=== PATIENT | male | born 1965 | race Caucasian/White ===

== ENCOUNTER 2017-11-20 06:59 | Emergency (ER) | payer MEDICARE, MEDICAID ==
[~2017-11-20] VITALS: Ht 172.7 cm; Wt 67.0 kg
[~2017-11-20 06:59] MED LIST: MEDICAL MARIJUANA
[2017-11-20 08:04] LABS: CLARITY,URINE CLOUDY (Clear); COLOR,URINE YELLOW (Yellow); GLUCOSE, URINE NEGATIVE (Neg); KETONES,URINE NEGATIVE (Neg); LEUKOCYTE ESTERASE ,URINE SMALL (Neg); NITRITES, URINE POSITIVE (Neg); OCCULT BLOOD,URINE LARGE (Neg); PH,URINE 6.5 (4.8-8.0); PROTEIN,URINE >=300 mg/dl (Neg)
[2017-11-20 08:06] LABS: BASOPHILS % (AUTO) 0.2 % (0-1); EOSINOPHILS % (AUTO) 0.1 % (0-6); HEMATOCRIT 43.5 % (42.0-52.0); HEMOGLOBIN 14.8 g/dl (14.0-17.9); LYMPHOCYTES # (AUTO) 1.2 X10'3 (1.1-4.8); MEAN CORPUSCULAR HEMOGLOBIN 31.5 PG (27.0-31.0); MEAN CORPUSCULAR VOLUME 92.7 FL (78-98); MEAN PLATELET VOLUME 9.3 FL (7.4-10.4); MONOCYTES # (AUTO) 1.1 X10'3 (0-0.9); MONOCYTES % (AUTO) 6.4 % (2-12); NEUTROPHILS # (AUTO) 14.4 X10'3 (1.8-7.7); NEUTROPHILS % (AUTO) 86.3 % (42-75); PLATELET COUNT 270 X10'3 (140-440); RED CELL DISTRIBUTION WIDTH 13.1 % (11.5-14.5); WHITE BLOOD COUNT 16.7 X10'3 (4.5-11.0)
[2017-11-20 08:11] LABS: INR 0.9 INR; PROTHROMBIN TIME 9.4 SECONDS (9.0-12.0)
[2017-11-20 08:16] LABS: ALANINE AMINOTRANSFERASE 79 U/L (12-78); ALBUMIN 3.9 G/DL (3.4-5.0); ALBUMIN/GLOBULIN RATIO 1.1 (1.1-1.5); ALKALINE PHOSPHATASE 78 IU/L (46-116); ANION GAP 5 (8-16); ASPARTATE AMINO TRANSFERASE 38 U/L (10-37); BILIRUBIN,TOTAL 0.4 MG/DL (0.1-1.0); BLOOD UREA NITROGEN 15 MG/DL (7-18); BUN/CREATININE RATIO 14.7 (5.4-32.0); CALCIUM 8.7 MG/DL (8.5-10.1); CHLORIDE 103 MMOL/L (99-107); CREATININE 1.02 MG/DL (0.60-1.10); GLUCOSE 129 MG/DL (70-104); LIPASE 135 U/L (73-393); POTASSIUM 3.7 MMOL/L (3.5-5.1); SODIUM 139 MMOL/L (135-145); TOTAL CARBON DIOXIDE 30.7 MMOL/L (24-32); TOTAL PROTEIN 7.3 G/DL (6.4-8.2); eGFR 76 ML/MIN
[2017-11-20 08:30] LABS: UA COLLECTION TYPE CLN CATCH MIDSTREAM
[2017-11-20 08:35] LABS: SQUAMOUS EPITHELIAL CELL,UR FEW /LPF (FEW)
[2017-11-20 08:36] LABS: BACTERIA,URINE 4+ /HPF (Neg)
[2017-11-20 08:37] LABS: RBC,URINE TNTC /HPF (0-2); WBC,URINE TNTC /HPF (0-4)
[2017-11-20] MEDS ORDERED: CIPR-230 PO (09:42)
[2017-11-20 10:34] VITALS: BP 125/89
== END 2017-11-20 10:36 | disposition home or self-care (01) ==
LOC: ER 06:59
DX: N39.0 Urinary tract infection, site not specified (principal); G89.29 Other chronic pain; F12.90 Cannabis use, unspecified, uncomplicated; Z87.442 Personal history of urinary calculi; Z86.19 Personal history of other infectious and parasitic diseases; Z90.49 Acquired absence of other specified parts of digestive tract; Z88.5 Allergy status to narcotic agent; Z88.1 Allergy status to other antibiotic agents; Z79.899 Other long term (current) drug therapy
CPT/HCPCS: 36415; 74176; 80053; 81001; 83690; 85025; 85610; 87077; 87088; 87186; 99285

== ENCOUNTER 2019-04-14 09:02 | Emergency (ER) | payer MEDICARE, MEDICAID ==
[~2019-04-14] VITALS: Ht 165.1 cm; Wt 66.4 kg
[2019-04-14] MEDS ORDERED: ketorolac trometh inj. 60 MG/2 ML VIAL IM ONE (12:00)
[2019-04-14] MEDS ORDERED: cyclobenzaprine 10mg tablet PO ONE (12:00)
[2019-04-14] MEDS ORDERED: ACET-3067 PO (12:02)
[2019-04-14] MEDS ORDERED: CYCL-1 PO (12:02)
[2019-04-14 12:27] VITALS: BP 144/90
== END 2019-04-14 12:28 | disposition home or self-care (01) ==
LOC: ER 09:02
DX: M54.5 Low back pain (principal); G89.29 Other chronic pain; F12.90 Cannabis use, unspecified, uncomplicated; Z86.19 Personal history of other infectious and parasitic diseases; Z87.442 Personal history of urinary calculi; Z90.49 Acquired absence of other specified parts of digestive tract; Z87.891 Personal history of nicotine dependence; Z88.5 Allergy status to narcotic agent; Z88.1 Allergy status to other antibiotic agents; Z79.899 Other long term (current) drug therapy
CPT/HCPCS: 96372; 99283; J1885

== ENCOUNTER 2019-04-17 10:10 | Emergency (ER) | payer MEDICARE, MEDICAID ==
[~2019-04-17] VITALS: Ht 165.1 cm; Wt 66.4 kg
[~2019-04-17 10:10] MED LIST changes: +ACET-3067 PO; +CYCL-1 PO
[2019-04-17] MEDS ORDERED: ketorolac tromethamine 15mg/ml inj. IM ONE (11:05)
[2019-04-17 11:31] LABS: BASOPHILS % (AUTO) 0.2 % (0-1); EOSINOPHILS % (AUTO) 0.3 % (0-6); HEMATOCRIT 42.1 % (42.0-52.0); HEMOGLOBIN 14.8 g/dl (14.0-17.9); LYMPHOCYTES # (AUTO) 1.6 X10'3 (1.1-4.8); LYMPHOCYTES % (AUTO) 15.1 % (21-51); MEAN CORPUSCULAR HEMOGLOBIN 32.4 PG (27.0-31.0); MEAN CORPUSCULAR HGB CONC 35.2 g/dL (33.0-36.5); MEAN CORPUSCULAR VOLUME 92.1 FL (78-98); MEAN PLATELET VOLUME 9.4 FL (7.4-10.4); MONOCYTES # (AUTO) 0.7 X10'3 (0-0.9); MONOCYTES % (AUTO) 6.1 % (2-12); NEUTROPHILS # (AUTO) 8.5 X10'3 (1.8-7.7); NEUTROPHILS % (AUTO) 78.3 % (42-75); PLATELET COUNT 300 X10'3 (140-440); RED BLOOD COUNT 4.57 X10'6 (4.70-6.10); RED CELL DISTRIBUTION WIDTH 13.1 % (11.5-14.5); WHITE BLOOD COUNT 10.8 X10'3 (4.5-11.0)
[2019-04-17 11:44] LABS: ALANINE AMINOTRANSFERASE 43 U/L (12-78); ALBUMIN 4.1 G/DL (3.4-5.0); ALBUMIN/GLOBULIN RATIO 1.3 (1.1-1.5); ALKALINE PHOSPHATASE 64 IU/L (46-116); ANION GAP 9 (8-16); ASPARTATE AMINO TRANSFERASE 24 U/L (10-37); BILIRUBIN,TOTAL 0.2 MG/DL (0.1-1.0); BLOOD UREA NITROGEN 10 MG/DL (7-18); BUN/CREATININE RATIO 11.1 (5.4-32.0); CALCIUM 9.5 MG/DL (8.5-10.1); CHLORIDE 105 MMOL/L (99-107); GLUCOSE 128 MG/DL (70-104); POTASSIUM 3.8 MMOL/L (3.5-5.1); SODIUM 142 MMOL/L (135-145); TOTAL CARBON DIOXIDE 28.4 MMOL/L (24-32); TOTAL PROTEIN 7.3 G/DL (6.4-8.2); eGFR 88 ML/MIN
[2019-04-17 12:00] LABS: CLARITY,URINE CLEAR (Clear); COLOR,URINE YELLOW (Yellow); GLUCOSE, URINE NEGATIVE (Neg); KETONES,URINE NEGATIVE (Neg); LEUKOCYTE ESTERASE ,URINE NEGATIVE (Neg); NITRITES, URINE NEGATIVE (Neg); OCCULT BLOOD,URINE NEGATIVE (Neg); PH,URINE 7.5 (4.8-8.0); PROTEIN,URINE NEGATIVE (Neg); UROBILINOGEN,URINE 0.2 E.U/dL (0.2-1.0)
[2019-04-17 12:03] LABS: UA COLLECTION TYPE CLN CATCH MIDSTREAM
[2019-04-17] MEDS ORDERED: ondansetron 4mg rapidly disintigrating tab PO ONE (12:05)
[2019-04-17 13:02] VITALS: BP 149/80
== END 2019-04-17 14:17 | disposition home or self-care (01) ==
LOC: ER 10:11
DX: I88.0 Nonspecific mesenteric lymphadenitis (principal); M54.5 Low back pain; R11.10 Vomiting, unspecified; G89.29 Other chronic pain; F12.90 Cannabis use, unspecified, uncomplicated; Z90.49 Acquired absence of other specified parts of digestive tract; Z88.5 Allergy status to narcotic agent; Z88.1 Allergy status to other antibiotic agents; Z79.899 Other long term (current) drug therapy
CPT/HCPCS: 36415; 74176; 80053; 81003; 85025; 96372; 99284; J1885

== ENCOUNTER 2021-01-04 18:22 | Inpatient (IN) | payer MEDICARE, MEDICAID ==
[~2021-01-04] VITALS: Ht 165.1 cm; Wt 72.7 kg
[~2021-01-04 18:22] MED LIST changes: -ACET-3067 PO
[2021-01-04 18:55] LABS: HEMOGLOBIN 14.3 g/dl (14.0-17.9); MEAN CORPUSCULAR HEMOGLOBIN 31.2 PG (27.0-31.0); MEAN CORPUSCULAR HGB CONC 33.9 g/dL (33.0-36.5)
[2021-01-04 18:56] LABS: BASOPHILS # (AUTO) 0.1 X10'3 (0-0.2); BASOPHILS % (AUTO) 0.3 % (0-1); EOSINOPHILS % (AUTO) 0 % (0-6); HEMATOCRIT 42.3 % (42.0-52.0); LYMPHOCYTES # (AUTO) 1.1 X10'3 (1.1-4.8); LYMPHOCYTES % (AUTO) 5.5 % (21-51); MEAN CORPUSCULAR VOLUME 92.2 FL (78-98); MEAN PLATELET VOLUME 9.6 FL (7.4-10.4); MONOCYTES # (AUTO) 1.7 X10'3 (0-0.9); MONOCYTES % (AUTO) 8.3 % (2-12); NEUTROPHILS # (AUTO) 17.8 X10'3 (1.8-7.7); NEUTROPHILS % (AUTO) 85.9 % (42-75); PLATELET COUNT 300 X10'3 (140-440); RED BLOOD COUNT 4.58 X10'6 (4.70-6.10); RED CELL DISTRIBUTION WIDTH 13.1 % (11.5-14.5); WHITE BLOOD COUNT 20.7 X10'3 (4.5-11.0)
[2021-01-04 19:07] LABS: ALANINE AMINOTRANSFERASE 35 U/L (12-78); ALBUMIN/GLOBULIN RATIO 1.1 (1.1-1.5); ALKALINE PHOSPHATASE 64 IU/L (46-116); AMYLASE 34 U/L (25-115); ANION GAP 8 (8-16); ASPARTATE AMINO TRANSFERASE 21 U/L (10-37); BLOOD UREA NITROGEN 14 MG/DL (7-18); BUN/CREATININE RATIO 16.3 (5.4-32.0); CALCIUM 9.3 MG/DL (8.5-10.1); CHLORIDE 104 MMOL/L (99-107); CREATININE 0.86 MG/DL (0.60-1.10); GLUCOSE 109 MG/DL (70-104); LIPASE < 50 U/L (73-393); POTASSIUM 3.5 MMOL/L (3.5-5.1); SODIUM 140 MMOL/L (135-145); TOTAL CARBON DIOXIDE 28.2 MMOL/L (24-32); TOTAL PROTEIN 7.5 G/DL (6.4-8.2); eGFR > 90 ML/MIN
[2021-01-04] MEDS ORDERED: morphine 4 MG/ML inj SYRINge IV ONE ×2 (19:35→21:50)
[2021-01-04] MEDS ORDERED: iohexol 300mg/ml 100ml inj. ONE (19:51)
[2021-01-04] MEDS ORDERED: metroNIDAZOLE-Flagyl 500mg/NS 100 ML IV STA (21:38)
[2021-01-04] MEDS ORDERED: CefTRIAXone/D5W-Rocephin 1gm 50 ML IV ONE (21:40)
[2021-01-04] MEDS ORDERED: morphine 2 MG/ML inj. syringe IV PRN (22:05)
[2021-01-04] MEDS ORDERED: potassium Cl 20 mEq SR tablet PO PRN (22:05)
[2021-01-04] MEDS ORDERED: magnesium Cl slow-release 64mg tablet PO PRN (22:05)
[2021-01-04] MEDS ORDERED: HYDROmorphone inj. 0.5 MG/0.5 ML DISP.SYRIN IV PRN (22:05)
[2021-01-04] MEDS ORDERED: acetaminophen 325mg tablet PO PRN ×2 (22:05)
[2021-01-04] MEDS ORDERED: potassium Cl 40MEQ/1/2NS 520ml 520 ML IV PRN ×2 (22:05)
[2021-01-04] MEDS ORDERED: magnesium 4gm in 100ml NS 100 ML IV PRN (22:05)
[2021-01-04] MEDS ORDERED: HYDROcodone/acetaminophen 5mg/325mg tablet PO PRN (22:05)
[2021-01-04] MEDS ORDERED: mag hydrox/Alum hydrox/simeth 30ml oral suspension PO PRN (22:05)
[2021-01-04] MEDS ORDERED: HYDROcodone/acetaminophen 10/325mg tab PO PRN (22:05)
[2021-01-04] MEDS ORDERED: magnesium 2GM in 50ml NS 50 ML IV PRN (22:05)
[2021-01-04 22:40] LABS: CLARITY,URINE CLEAR (Clear); COLOR,URINE AMBER (Yellow); GLUCOSE, URINE NEGATIVE (Neg); KETONES,URINE >=80 mg/dl (Neg); LEUKOCYTE ESTERASE ,URINE NEGATIVE (Neg); NITRITES, URINE NEGATIVE (Neg); OCCULT BLOOD,URINE TRACE-LYSED (Neg); PROTEIN,URINE 30 mg/dl (Neg)
[2021-01-04 22:47] LABS: UA COLLECTION TYPE URINAL
[2021-01-04 22:52] LABS: BACTERIA,URINE NONE SEEN /HPF (Neg); RBC,URINE NONE SEEN /HPF (0-2); SQUAMOUS EPITHELIAL CELL,UR FEW /LPF (FEW); WBC,URINE 0-4 /HPF (0-4)
[2021-01-04 22:53] LABS: MUCUS STRANDS NONE SEEN /LPF (Neg)
[2021-01-04] MEDS: normal saline 1000ml 1,000 ML IV SCH (23:39)
[2021-01-04] MEDS: vancomycin/NS 1 GM ADD-VANTAGE 250 ML IV SCH (23:39)
[2021-01-05] MEDS: diatr meglu/diatrizoate 30ml oral sol.-(3 dose) bottle PO SCH ×4 (03:55→21:39)
--- NOTE | 2021-01-05 03:55 | NUR ---
SCANNER NOT WOEKING, UNABLE TO SCAN GASTROGRAFIN DOSE AT 0400
[2021-01-05] MEDS: morphine 2 MG/ML inj. syringe IV PRN ×3 (04:02→19:51)
[2021-01-05] MEDS: heparin, porcine 5000 units/ml vial SQ SCH ×2 (07:16→21:39)
[2021-01-05] MEDS: pantoprazole 40mg Tablet.DR PO SCH (07:16)
[2021-01-05] MEDS: piperacillin/tazo 3.375gm/50ml 50 ML IV SCH ×3 (07:16→18:35)
[2021-01-05] MEDS: normal saline 1000ml 1,000 ML IV SCH ×2 (08:53→19:21)
[2021-01-05] MEDS: K and/or MAG REPLACEMENT MC SCH ×2 (08:54→20:00)
[2021-01-05] MEDS: vancomycin/NS 1 GM ADD-VANTAGE 250 ML IV SCH ×2 (09:32→23:33)
[2021-01-05 09:34] LABS: BASOPHILS % (AUTO) 0.2 % (0-1); EOSINOPHILS % (AUTO) 0 % (0-6); HEMATOCRIT 41.2 % (42.0-52.0); HEMOGLOBIN 13.9 g/dl (14.0-17.9); LYMPHOCYTES % (AUTO) 4.3 % (21-51); MEAN CORPUSCULAR HEMOGLOBIN 30.9 PG (27.0-31.0); MEAN CORPUSCULAR HGB CONC 33.7 g/dL (33.0-36.5); MEAN CORPUSCULAR VOLUME 91.5 FL (78-98); MEAN PLATELET VOLUME 9.3 FL (7.4-10.4); MONOCYTES # (AUTO) 1.7 X10'3 (0-0.9); MONOCYTES % (AUTO) 7.7 % (2-12); NEUTROPHILS # (AUTO) 19.9 X10'3 (1.8-7.7); NEUTROPHILS % (AUTO) 87.8 % (42-75); PLATELET COUNT 291 X10'3 (140-440); RED CELL DISTRIBUTION WIDTH 13.4 % (11.5-14.5); WHITE BLOOD COUNT 22.7 X10'3 (4.5-11.0)
[2021-01-05] MEDS ORDERED: iohexol 300mg/ml 100ml inj. ONE (09:48)
[2021-01-05 09:51] LABS: ALANINE AMINOTRANSFERASE 32 U/L (12-78); ALBUMIN 3.3 G/DL (3.4-5.0); ALBUMIN/GLOBULIN RATIO 0.9 (1.1-1.5); ALKALINE PHOSPHATASE 46 IU/L (46-116); ANION GAP 13 (8-16); ASPARTATE AMINO TRANSFERASE 17 U/L (10-37); BILIRUBIN,TOTAL 0.8 MG/DL (0.1-1.0); BLOOD UREA NITROGEN 12 MG/DL (7-18); BUN/CREATININE RATIO 15.6 (5.4-32.0); CALCIUM 8.4 MG/DL (8.5-10.1); CHLORIDE 102 MMOL/L (99-107); CREATININE 0.77 MG/DL (0.60-1.10); GLUCOSE 113 MG/DL (70-104); MAGNESIUM 2.1 MG/DL (1.5-2.4); POTASSIUM 3.6 MMOL/L (3.5-5.1); SODIUM 141 MMOL/L (135-145); TOTAL CARBON DIOXIDE 26.2 MMOL/L (24-32); TOTAL PROTEIN 6.8 G/DL (6.4-8.2); eGFR > 90 ML/MIN
[2021-01-05] MEDS ORDERED: ringers solution, lacted 1,000 ML IV ONE (21:25)
[2021-01-05] MEDS: ondansetron/PF 4mg/2ml inj IV PRN (21:53)
[2021-01-06] VITALS (21 sets, daily range): BP systolic 115–151; BP diastolic 71–93
[2021-01-06] MEDS: piperacillin/tazo 3.375gm/50ml 50 ML IV SCH ×3 (01:19→16:28)
[2021-01-06] MEDS: morphine 2 MG/ML inj. syringe IV PRN ×4 (01:25→18:29)
[2021-01-06] MEDS: normal saline 1000ml 1,000 ML IV SCH ×2 (06:00→08:43)
[2021-01-06 06:08] LABS: BASOPHILS % (AUTO) 0.1 % (0-1); EOSINOPHILS % (AUTO) 0 % (0-6); HEMATOCRIT 37.3 % (42.0-52.0); HEMOGLOBIN 12.4 g/dl (14.0-17.9); LYMPHOCYTES # (AUTO) 1.9 X10'3 (1.1-4.8); LYMPHOCYTES % (AUTO) 9.9 % (21-51); MEAN CORPUSCULAR HEMOGLOBIN 30.9 PG (27.0-31.0); MEAN CORPUSCULAR HGB CONC 33.3 g/dL (33.0-36.5); MEAN CORPUSCULAR VOLUME 92.9 FL (78-98); MONOCYTES # (AUTO) 1.6 X10'3 (0-0.9); MONOCYTES % (AUTO) 8.4 % (2-12); NEUTROPHILS # (AUTO) 15.7 X10'3 (1.8-7.7); NEUTROPHILS % (AUTO) 81.6 % (42-75); PLATELET COUNT 271 X10'3 (140-440); RED BLOOD COUNT 4.02 X10'6 (4.70-6.10); RED CELL DISTRIBUTION WIDTH 13.1 % (11.5-14.5); WHITE BLOOD COUNT 19.3 X10'3 (4.5-11.0)
--- NOTE | 2021-01-06 06:10 | NUR ---
Patient in room [facility]. I have received report from YASMINE Caceres and had the opportunity to ask questions and assume patient care.
[2021-01-06 06:22] LABS: ALANINE AMINOTRANSFERASE 23 U/L (12-78); ALBUMIN 2.7 G/DL (3.4-5.0); ALBUMIN/GLOBULIN RATIO 0.9 (1.1-1.5); ALKALINE PHOSPHATASE 52 IU/L (46-116); ANION GAP 8 (8-16); ASPARTATE AMINO TRANSFERASE 14 U/L (10-37); BILIRUBIN,TOTAL 0.8 MG/DL (0.1-1.0); BLOOD UREA NITROGEN 15 MG/DL (7-18); BUN/CREATININE RATIO 20.8 (5.4-32.0); CALCIUM 8.4 MG/DL (8.5-10.1); CHLORIDE 105 MMOL/L (99-107); CREATININE 0.72 MG/DL (0.60-1.10); GLUCOSE 109 MG/DL (70-104); POTASSIUM 3.4 MMOL/L (3.5-5.1); SODIUM 141 MMOL/L (135-145); TOTAL CARBON DIOXIDE 28.3 MMOL/L (24-32); TOTAL PROTEIN 5.8 G/DL (6.4-8.2); eGFR > 90 ML/MIN
[2021-01-06] MEDS: K and/or MAG REPLACEMENT MC SCH ×2 (07:50→17:46)
[2021-01-06] MEDS: heparin, porcine 5000 units/ml vial SQ SCH (08:00)
[2021-01-06] MEDS: pantoprazole 40mg Tablet.DR PO SCH (08:43)
[2021-01-06] MEDS: diatr meglu/diatrizoate 30ml oral sol.-(3 dose) bottle PO SCH (08:43)
[2021-01-06] MEDS: potassium Cl 20 mEq SR tablet PO PRN ×3 (08:58→20:35)
[2021-01-06] MEDS ORDERED: VANCOMYCIN LEVEL IV ONE (09:30)
[2021-01-06] MEDS ORDERED: BUPIVAcaine 0.5% inj/PF 30 ML ONE (09:47)
[2021-01-06] MEDS ORDERED: LIDOcaine 1% 30ml preserv. free vial ONE (09:47)
--- NOTE | 2021-01-06 10:21 | NUR ---
Malnutrition consult: Pt unsure of wt loss though reports decreased appetite per malnutrition risk screen with RN. Current documented wt isn't scaled though is higher than documented wt hx in EMR. Pt admit for ruptured suppurative appendicitis, currently NPO for OR today. Of note pt reports emesis x 3 the day of admit with decreased appetite per ED report with worsening abdominal pain over a 2-day period per MD note, likely impacting PO intake. Pt with no documented edema and appears well developed well nourished per ED report. Pt currently lacks a minimum of two criteria for malnutrition. Will continue to follow. Addendum: 01/06/21 at [address] Amended: Links added.
[2021-01-06] MEDS: vancomycin/NS 1 GM ADD-VANTAGE 250 ML IV SCH ×2 (11:30→19:40)
[2021-01-06] MEDS ORDERED: sevoflurane 250ml liquid IH ONE (11:41)
[2021-01-06] MEDS ORDERED: vancomycin 1,000mg inj ONE (11:41)
[2021-01-06] MEDS ORDERED: midazolam 1 mg/ML 2ml injection ONE (11:43)
[2021-01-06] MEDS ORDERED: fentaNYL /PF 50mcg/ml 5ml ampule ONE (11:43)
[2021-01-06] MEDS ORDERED: meperidine/PF 25mg/ml syringe IV PRN ×3 (12:30)
[2021-01-06] MEDS ORDERED: proCHLORperazine 10 MG/2 ml inj IV PRN (12:30)
[2021-01-06] MEDS ORDERED: morphine 2 MG/ML inj. syringe IV PRN (12:30)
[2021-01-06] MEDS ORDERED: ringers solution, lacted 1,000 ML IV SCH (12:30)
[2021-01-06] MEDS ORDERED: morphine 4 MG/ML inj SYRINge IV PRN (12:30)
[2021-01-06] MEDS ORDERED: ondansetron/PF 4mg/2ml inj IV PRN (12:30)
[2021-01-06] MEDS ORDERED: glycopyrrolate 0.2mg/ml inj ONE (12:58)
[2021-01-06] MEDS ORDERED: propofol inj 20 ML IV ONE (12:58)
[2021-01-06] MEDS ORDERED: neostigmine methylsulfate 1 MG/ML 10ml vial ONE (12:58)
[2021-01-06] MEDS ORDERED: rocuronium 10mg/ml inj IV ONE (12:58)
[2021-01-06] MEDS ORDERED: HYDROcodone/acetaminophen 5mg/325mg tablet PO PRN (13:15)
--- NOTE | 2021-01-06 13:19 | NUR ---
Received from OR via , accompanied by Anesthesiologist DR GUILLEN and report given by Anesthesiolgist. PT PRESENT WITH 20G RIGHT AC, ABD DRESING DRY AND INTACT, BETSY DRAIN. VSS. Addendum: 01/06/21 at 1328 by Drea Light RN, RN Amended: Links added.
--- NOTE | 2021-01-06 14:20 | NUR ---
Report received from [employer], Drea
--- NOTE | 2021-01-06 14:39 | NUR ---
PATIENT TAKEN TO ROOM WITH ALL BELONGINGS AND HOOKED UP TO MONITORS IN ROOM AND GIVEN CALL LIGHT, REPORT GIVEN TO LIONEL UNDERWOOD WHO HAS TAKEN OVER PATIENT CARE. Addendum: 01/06/21 at 1447 by Drea Light RN, RN Amended: Links added.
[2021-01-06] MEDS: HYDROcodone/acetaminophen 10/325mg tab PO PRN ×2 (16:30→20:36)
[2021-01-06] MEDS: lactobacillus rhamnosus 10,000 MMU CELLS/CAPSULE PO SCH (20:36)
--- NOTE | 2021-01-07 | NUR ---
Patient in room [facility]. I have received report from Zakia UNDERWOOD and had the opportunity to ask questions and assume patient care. Addendum: 01/07/21 at 0620 by Princess Terrazas RN Amended: Links added.
[2021-01-07] MEDS: normal saline 1000ml 1,000 ML IV SCH ×3 (00:05→16:18)
[2021-01-07] MEDS: piperacillin/tazo 3.375gm/50ml 50 ML IV SCH ×3 (00:15→16:18)
[2021-01-07] MEDS: morphine 2 MG/ML inj. syringe IV PRN ×3 (00:16→22:24)
--- NOTE | 2021-01-07 00:45 | NUR ---
Problems reprioritized. Patient report given, questions answered & plan of care reviewed with YASMINE Sánchez.
[2021-01-07] MEDS: vancomycin/NS 1 GM ADD-VANTAGE 250 ML IV SCH (03:03)
[2021-01-07 04:00] VITALS: BP 133/88
[2021-01-07 05:41] LABS: BASOPHILS % (AUTO) 0.1 % (0-1); EOSINOPHILS % (AUTO) 0 % (0-6); HEMOGLOBIN 13.5 g/dl (14.0-17.9); LYMPHOCYTES # (AUTO) 0.9 X10'3 (1.1-4.8); LYMPHOCYTES % (AUTO) 5.5 % (21-51); MEAN CORPUSCULAR HEMOGLOBIN 30.9 PG (27.0-31.0); MEAN CORPUSCULAR VOLUME 93.6 FL (78-98); MEAN PLATELET VOLUME 9.3 FL (7.4-10.4); MONOCYTES # (AUTO) 1.7 X10'3 (0-0.9); NEUTROPHILS # (AUTO) 14.3 X10'3 (1.8-7.7); NEUTROPHILS % (AUTO) 84.4 % (42-75); PLATELET COUNT 323 X10'3 (140-440); RED BLOOD COUNT 4.38 X10'6 (4.70-6.10); RED CELL DISTRIBUTION WIDTH 13.1 % (11.5-14.5)
[2021-01-07 06:15] LABS: ALANINE AMINOTRANSFERASE 23 U/L (12-78); ALBUMIN 2.4 G/DL (3.4-5.0); ALBUMIN/GLOBULIN RATIO 0.7 (1.1-1.5); ALKALINE PHOSPHATASE 40 IU/L (46-116); ANION GAP 9 (8-16); ASPARTATE AMINO TRANSFERASE 32 U/L (10-37); BILIRUBIN,TOTAL 0.6 MG/DL (0.1-1.0); BLOOD UREA NITROGEN 21 MG/DL (7-18); BUN/CREATININE RATIO 10.6 (5.4-32.0); CALCIUM 8.2 MG/DL (8.5-10.1); CHLORIDE 105 MMOL/L (99-107); CREATININE 1.99 MG/DL (0.60-1.10); GLUCOSE 98 MG/DL (70-104); POTASSIUM 4.3 MMOL/L (3.5-5.1); SODIUM 141 MMOL/L (135-145); TOTAL CARBON DIOXIDE 27.1 MMOL/L (24-32); TOTAL PROTEIN 5.8 G/DL (6.4-8.2); eGFR 35 ML/MIN
[2021-01-07 07:00] VITALS: BP 144/92
[2021-01-07] MEDS: K and/or MAG REPLACEMENT MC SCH ×2 (08:00→20:00)
[2021-01-07] MEDS: pantoprazole 40mg Tablet.DR PO SCH (08:11)
[2021-01-07] MEDS: lactobacillus rhamnosus 10,000 MMU CELLS/CAPSULE PO SCH ×2 (08:11→20:43)
[2021-01-07] MEDS: enoxaparin 40mg/0.4ml syringe SQ SCH (08:12)
[2021-01-07] MEDS: HYDROcodone/acetaminophen 10/325mg tab PO PRN (08:21)
[2021-01-07] MEDS ORDERED: VANCOMYCIN LEVEL IV ONE (10:30)
--- NOTE | 2021-01-07 13:15 | NUR ---
Problems reprioritized. Patient report given, questions answered & plan of care reviewed with YASMINE Feliciano.
--- NOTE | 2021-01-07 13:47 | NUR ---
Paged Dr. Veliz PAGER ID: [phone] MESSAGE: Surgical Sara RN ext [phone]. RE: Roosevelt [place]. Just so you know patient's Vanco trough level is critically high 29.1, pharmacy d/c the Vanco already. Patient renal function not good BUN/Crea /.99 GFR down to 35 from >90.
--- NOTE | 2021-01-07 17:34 | NUR ---
Paged Dr. Veliz PAGER ID: [phone] MESSAGE: Second page Surgical Sara UNDERWOOD ext [phone]. Roosevelt Hudson. Patient GFR today is 35 from 90 yesterday. His Vanco trough was 29.1 and Vanco has been discontinued already. He is urinating adequately but urine looks diluted.
[2021-01-07] MEDS: ondansetron/PF 4mg/2ml inj IV PRN (18:20)
--- NOTE | 2021-01-07 18:28 | NUR ---
Problems reprioritized. Patient report given, questions answered & plan of care reviewed with Gail UNDERWOOD.
--- NOTE | 2021-01-07 18:30 | NUR ---
Patient in room [facility]. [facility] and had the opportunity to ask questions and assume patient care.
[2021-01-07 19:00] VITALS: BP 153/87
[2021-01-07 23:00] VITALS: BP 144/87
[2021-01-08] MEDS: piperacillin/tazo 3.375gm/50ml 50 ML IV SCH ×4 (00:09→23:59)
[2021-01-08] MEDS: normal saline 1000ml 1,000 ML IV SCH ×3 (02:25→21:45)
[2021-01-08] MEDS: morphine 2 MG/ML inj. syringe IV PRN ×3 (04:18→21:40)
[2021-01-08] MEDS: ondansetron/PF 4mg/2ml inj IV PRN ×2 (04:18→19:06)
--- NOTE | 2021-01-08 06:14 | NUR ---
Patient in room [facility]. I have received report from Gail UNDERWOOD and had the opportunity to ask questions and assume patient care.
[2021-01-08 06:15] LABS: BASOPHILS % (AUTO) 0.1 % (0-1); EOSINOPHILS % (AUTO) 0.1 % (0-6); HEMATOCRIT 37.2 % (42.0-52.0); HEMOGLOBIN 12.3 g/dl (14.0-17.9); LYMPHOCYTES # (AUTO) 0.7 X10'3 (1.1-4.8); MEAN CORPUSCULAR HEMOGLOBIN 30.5 PG (27.0-31.0); MEAN CORPUSCULAR HGB CONC 32.9 g/dL (33.0-36.5); MEAN CORPUSCULAR VOLUME 92.7 FL (78-98); MEAN PLATELET VOLUME 8.9 FL (7.4-10.4); MONOCYTES # (AUTO) 1.1 X10'3 (0-0.9); MONOCYTES % (AUTO) 7.7 % (2-12); NEUTROPHILS # (AUTO) 11.9 X10'3 (1.8-7.7); NEUTROPHILS % (AUTO) 87.1 % (42-75); PLATELET COUNT 354 X10'3 (140-440); RED BLOOD COUNT 4.02 X10'6 (4.70-6.10); RED CELL DISTRIBUTION WIDTH 12.9 % (11.5-14.5); WHITE BLOOD COUNT 13.7 X10'3 (4.5-11.0)
[2021-01-08 06:25] LABS: ALANINE AMINOTRANSFERASE 21 U/L (12-78); ALBUMIN 2.3 G/DL (3.4-5.0); ALBUMIN/GLOBULIN RATIO 0.7 (1.1-1.5); ALKALINE PHOSPHATASE 48 IU/L (46-116); ANION GAP 11 (8-16); ASPARTATE AMINO TRANSFERASE 25 U/L (10-37); BILIRUBIN,TOTAL 0.4 MG/DL (0.1-1.0); BLOOD UREA NITROGEN 20 MG/DL (7-18); BUN/CREATININE RATIO 9.1 (5.4-32.0); CHLORIDE 107 MMOL/L (99-107); GLUCOSE 161 MG/DL (70-104); MAGNESIUM 2.3 MG/DL (1.5-2.4); POTASSIUM 3.8 MMOL/L (3.5-5.1); SODIUM 145 MMOL/L (135-145); TOTAL PROTEIN 5.6 G/DL (6.4-8.2); eGFR 31 ML/MIN
--- NOTE | 2021-01-08 06:58 | NUR ---
Problems reprioritized. Patient report given, questions answered & plan of care reviewed with GHASSAN.
[2021-01-08 07:00] VITALS: BP 136/80
[2021-01-08] MEDS: K and/or MAG REPLACEMENT MC SCH ×2 (08:00→20:00)
[2021-01-08] MEDS: lactobacillus rhamnosus 10,000 MMU CELLS/CAPSULE PO SCH ×2 (08:23→19:37)
[2021-01-08] MEDS: pantoprazole 40mg Tablet.DR PO SCH (08:23)
[2021-01-08] MEDS: enoxaparin 40mg/0.4ml syringe SQ SCH (08:24)
--- NOTE | 2021-01-08 09:36 | NUR ---
Paged Dr. Veliz PAGER ID: [phone] MESSAGE: Surgical Sara RN ext [phone]. RE: Roosevelt Hudson. Patient GFR today is 31 from 35 yesterday. BUN/Crea= 20/2.20 (1.99). Urine output 3675ml x 24 hrs. Urine pale yellow. IVF NS@100ml/hr
[2021-01-08 11:00] VITALS: BP 142/79
--- NOTE | 2021-01-08 17:53 | NUR ---
Dr. Boyce made rounds, he took the dressing off. Per Dr. Boyce, leave the incision open to air and we are keeping diet clear liquid for now
[2021-01-08 18:00] VITALS: BP 163/79
--- NOTE | 2021-01-08 18:08 | NUR ---
Problems reprioritized. Patient report given, questions answered & plan of care reviewed with Chiquita UNDERWOOD.
[2021-01-08 19:00] VITALS: BP 163/79
[2021-01-09] VITALS: BP 159/82
[2021-01-09] MEDS: morphine 2 MG/ML inj. syringe IV PRN ×2 (03:25→08:04)
[2021-01-09] MEDS: normal saline 1000ml 1,000 ML IV SCH ×2 (06:19→18:00)
--- NOTE | 2021-01-09 07:03 | NUR ---
Problems reprioritized. Patient report given, questions answered & plan of care reviewed with YASMINE Hurst.
[2021-01-09 07:10] LABS: BASOPHILS % (AUTO) 0.1 % (0-1); EOSINOPHILS % (AUTO) 0.1 % (0-6); HEMATOCRIT 38.6 % (42.0-52.0); HEMOGLOBIN 12.7 g/dl (14.0-17.9); LYMPHOCYTES # (AUTO) 1.1 X10'3 (1.1-4.8); LYMPHOCYTES % (AUTO) 8.6 % (21-51); MEAN CORPUSCULAR HEMOGLOBIN 30.5 PG (27.0-31.0); MEAN CORPUSCULAR HGB CONC 32.8 g/dL (33.0-36.5); MEAN CORPUSCULAR VOLUME 92.9 FL (78-98); MEAN PLATELET VOLUME 8.6 FL (7.4-10.4); MONOCYTES # (AUTO) 1.3 X10'3 (0-0.9); MONOCYTES % (AUTO) 9.5 % (2-12); NEUTROPHILS # (AUTO) 10.9 X10'3 (1.8-7.7); NEUTROPHILS % (AUTO) 81.7 % (42-75); PLATELET COUNT 409 X10'3 (140-440); RED BLOOD COUNT 4.15 X10'6 (4.70-6.10); RED CELL DISTRIBUTION WIDTH 12.8 % (11.5-14.5); WHITE BLOOD COUNT 13.3 X10'3 (4.5-11.0)
[2021-01-09 07:15] VITALS: BP 147/78
[2021-01-09 07:22] LABS: ALANINE AMINOTRANSFERASE 19 U/L (12-78); ALBUMIN 2.4 G/DL (3.4-5.0); ALBUMIN/GLOBULIN RATIO 0.7 (1.1-1.5); ALKALINE PHOSPHATASE 51 IU/L (46-116); ANION GAP 12 (8-16); ASPARTATE AMINO TRANSFERASE 22 U/L (10-37); BILIRUBIN,TOTAL 0.4 MG/DL (0.1-1.0); BLOOD UREA NITROGEN 23 MG/DL (7-18); BUN/CREATININE RATIO 10.8 (5.4-32.0); CALCIUM 8.3 MG/DL (8.5-10.1); CHLORIDE 108 MMOL/L (99-107); CREATININE 2.13 MG/DL (0.60-1.10); GLUCOSE 110 MG/DL (70-104); MAGNESIUM 2.3 MG/DL (1.5-2.4); POTASSIUM 3.5 MMOL/L (3.5-5.1); SODIUM 145 MMOL/L (135-145); TOTAL CARBON DIOXIDE 25.1 MMOL/L (24-32); TOTAL PROTEIN 5.9 G/DL (6.4-8.2); eGFR 32 ML/MIN
[2021-01-09] MEDS: pantoprazole 40mg Tablet.DR PO SCH (07:33)
[2021-01-09] MEDS: lactobacillus rhamnosus 10,000 MMU CELLS/CAPSULE PO SCH ×2 (07:33→18:57)
[2021-01-09] MEDS: enoxaparin 40mg/0.4ml syringe SQ SCH (07:34)
[2021-01-09] MEDS: piperacillin/tazo 3.375gm/50ml 50 ML IV SCH ×2 (07:35→16:42)
[2021-01-09] MEDS: K and/or MAG REPLACEMENT MC SCH ×2 (07:37→20:00)
[2021-01-09 11:00] VITALS: BP 154/77
--- NOTE | 2021-01-09 13:57 | NUR ---
Initial: Pt admit DX ruptured appendix s/p laparoscopic appendectomy with drainage of peritoneal abscess, sepsis r/t acute appendicitis, and acute renal failure r/t dehydration improving w/ hydration per MD note. Advanced to clear liquid diet since 01/06 3 days NPO initial two days of admit. PO ~25% clear liquids past two days w/ N/V last night per RN today. LBM 01/04 5 days constipation now passing gas for first time post-op and feeling better this AM per RN did eat 75% clears this AM. RD d/w RN regarding routine bowel care if MD agreeable post-op since receiving opiate antagonists. Will monitor for diet advancement; may benefit from ONS if to remain on restrictive diet. Rec: 1. advance diet as medically indicated to regular 2. monitor for ONS needs pending diet advancement and further GI symptoms w/ PO intake hx this admit 3. routine bowel care; 5 days constipation post-op 4. scaled wt this admit Addendum: 01/09/21 at [address] Amended: Links added.
[2021-01-09] MEDS: HYDROcodone/acetaminophen 10/325mg tab PO PRN (16:45)
--- NOTE | 2021-01-09 17:38 | NUR ---
Dr Boyce aware that patient has had some intermittent vomiting but then seems fine. Patient also has hypo bowel sounds. Dr Boyce says this is all expected at this time due to his ruptured appendix and likely has an ileus. Just monitor for now for need for NG tube if needed.
[2021-01-09 18:00] VITALS: BP 144/81
--- NOTE | 2021-01-09 18:47 | NUR ---
Patient in room [facility]. I have received report from YASMINE Hurst and had the opportunity to ask questions and assume patient care.
--- NOTE | 2021-01-09 18:57 | NUR ---
Report given to Bhargavi UNDERWOOD, all questions answered. Pt in room eating CL diet for dinner. Says he feels fine, no current needs.
--- NOTE | 2021-01-09 18:58 | NUR ---
Dr Boyce did not feel that patient needed KUB, Dr Veliz messaged, I did not order it due to Dr Boyce not feeling it was needed.
[2021-01-10] VITALS: BP 143/78
[2021-01-10] MEDS: piperacillin/tazo 3.375gm/50ml 50 ML IV SCH ×3 (01:19→16:37)
[2021-01-10] MEDS: HYDROcodone/acetaminophen 10/325mg tab PO PRN ×2 (01:56→16:39)
[2021-01-10] MEDS: normal saline 1000ml 1,000 ML IV SCH ×3 (03:24→18:05)
--- NOTE | 2021-01-10 06:40 | NUR ---
Problems reprioritized. Patient report given, questions answered & plan of care reviewed with YASMINE Delgado.
--- NOTE | 2021-01-10 06:46 | NUR ---
Patient in room [facility]. I have received report from Bhargavi UNDERWOOD and had the opportunity to ask questions and assume patient care.
[2021-01-10 07:04] LABS: MAGNESIUM 1.9 MG/DL (1.5-2.4)
[2021-01-10 07:24] VITALS: BP 157/88
[2021-01-10] MEDS: K and/or MAG REPLACEMENT MC SCH ×3 (08:00→20:00)
[2021-01-10] MEDS: pantoprazole 40mg Tablet.DR PO SCH (08:23)
[2021-01-10] MEDS: enoxaparin 40mg/0.4ml syringe SQ SCH (08:23)
[2021-01-10] MEDS: lactobacillus rhamnosus 10,000 MMU CELLS/CAPSULE PO SCH ×2 (08:23→19:34)
[2021-01-10 10:19] LABS: ALBUMIN 2.3 G/DL (3.4-5.0); ANION GAP 12 (8-16); BLOOD UREA NITROGEN 20 MG/DL (7-18); BUN/CREATININE RATIO 10.2 (5.4-32.0); CALCIUM 7.9 MG/DL (8.5-10.1); CHLORIDE 108 MMOL/L (99-107); CREATININE 1.97 MG/DL (0.60-1.10); GLUCOSE 95 MG/DL (70-104); SODIUM 146 MMOL/L (135-145); TOTAL CARBON DIOXIDE 25.7 MMOL/L (24-32); eGFR 35 ML/MIN
[2021-01-10] MEDS ORDERED: magnesium 4gm in 100ml NS 100 ML IV PRN (10:30)
[2021-01-10] MEDS ORDERED: potassium Cl 20 mEq SR tablet PO PRN (10:30)
[2021-01-10] MEDS ORDERED: magnesium Cl slow-release 64mg tablet PO PRN (10:30)
[2021-01-10] MEDS ORDERED: potassium Cl 40MEQ/1/2NS 520ml 520 ML IV PRN (10:30)
[2021-01-10] MEDS: potassium Cl 20 mEq SR tablet PO PRN ×2 (10:48→16:38)
[2021-01-10 12:00] VITALS: BP 150/79
[2021-01-10 19:00] VITALS: BP 166/85
[2021-01-11] VITALS: BP 144/93
--- NOTE | 2021-01-11 00:30 | NUR ---
Patient in room [facility]. I have received report from JEFE and had the opportunity to ask questions and assume patient care. PT RESTING AT THIS TIME
[2021-01-11] MEDS: piperacillin/tazo 3.375gm/50ml 50 ML IV SCH ×2 (00:45→07:59)
--- NOTE | 2021-01-11 00:45 | NUR ---
Problems reprioritized. Patient report given, questions answered & plan of care reviewed with Gail UNDERWOOD.
[2021-01-11] MEDS: normal saline 1000ml 1,000 ML IV SCH ×2 (04:05→08:00)
--- NOTE | 2021-01-11 05:58 | NUR ---
Problems reprioritized. Patient report given, questions answered & plan of care reviewed with
--- NOTE | 2021-01-11 06:16 | NUR ---
Patient in room [facility]. I have received report from YASMINE Moffett and had the opportunity to ask questions and assume patient care.
[2021-01-11 06:30] LABS: BASOPHILS % (AUTO) 0.2 % (0-1); EOSINOPHILS # (AUTO) 0.3 X10'3 (0-0.9); EOSINOPHILS % (AUTO) 2.6 % (0-6); HEMATOCRIT 37.9 % (42.0-52.0); HEMOGLOBIN 12.9 g/dl (14.0-17.9); LYMPHOCYTES # (AUTO) 1.9 X10'3 (1.1-4.8); LYMPHOCYTES % (AUTO) 14.9 % (21-51); MEAN CORPUSCULAR HEMOGLOBIN 30.8 PG (27.0-31.0); MEAN CORPUSCULAR HGB CONC 33.9 g/dL (33.0-36.5); MEAN CORPUSCULAR VOLUME 90.7 FL (78-98); MEAN PLATELET VOLUME 8.2 FL (7.4-10.4); MONOCYTES # (AUTO) 1.5 X10'3 (0-0.9); MONOCYTES % (AUTO) 11.6 % (2-12); NEUTROPHILS # (AUTO) 9.2 X10'3 (1.8-7.7); NEUTROPHILS % (AUTO) 70.7 % (42-75); PLATELET COUNT 442 X10'3 (140-440); RED BLOOD COUNT 4.18 X10'6 (4.70-6.10); RED CELL DISTRIBUTION WIDTH 12.8 % (11.5-14.5); WHITE BLOOD COUNT 12.9 X10'3 (4.5-11.0)
[2021-01-11 06:57] VITALS: BP 153/85
[2021-01-11 06:57] LABS: ALANINE AMINOTRANSFERASE 30 U/L (12-78); ALBUMIN 2.4 G/DL (3.4-5.0); ALBUMIN/GLOBULIN RATIO 0.8 (1.1-1.5); ALKALINE PHOSPHATASE 54 IU/L (46-116); ANION GAP 10 (8-16); ASPARTATE AMINO TRANSFERASE 31 U/L (10-37); BILIRUBIN,TOTAL 0.4 MG/DL (0.1-1.0); BLOOD UREA NITROGEN 15 MG/DL (7-18); BUN/CREATININE RATIO 8.3 (5.4-32.0); CALCIUM 8.8 MG/DL (8.5-10.1); CHLORIDE 110 MMOL/L (99-107); GLUCOSE 113 MG/DL (70-104); MAGNESIUM 1.7 MG/DL (1.5-2.4); PHOSPHORUS 4.2 MG/DL (2.3-4.5); POTASSIUM 3.5 MMOL/L (3.5-5.1); SODIUM 147 MMOL/L (135-145); TOTAL PROTEIN 5.5 G/DL (6.4-8.2); eGFR 39 ML/MIN
[2021-01-11] MEDS: pantoprazole 40mg Tablet.DR PO SCH (07:59)
[2021-01-11] MEDS: lactobacillus rhamnosus 10,000 MMU CELLS/CAPSULE PO SCH (07:59)
[2021-01-11] MEDS: enoxaparin 40mg/0.4ml syringe SQ SCH (07:59)
[2021-01-11] MEDS: K and/or MAG REPLACEMENT MC SCH ×2 (08:00)
[2021-01-11] MEDS: HYDROcodone/acetaminophen 10/325mg tab PO PRN (08:02)
[2021-01-11] MEDS ORDERED: AMOX-580 PO (10:48)
[2021-01-11] MEDS ORDERED: ACET-1008 PO (10:49)
[2021-01-11 11:00] VITALS: BP 140/91
--- NOTE | 2021-01-11 15:25 | NUR ---
Pt discharged to home with all belongings, in private vehicle, accompanied by sister. Discharge instructions and medications reviewed. New prescription for antibiotics called to [facility] pharmacy in [place]. Triplicate for norco provided to pt with instructions to take to pharmacy of choice to fill. Pt instructed to follow up with Dr Boyce in 1-2 weeks, office number provided. Pt also instructed to watch for any signs/symptoms of infection and to notify his office with any concerns. Pt stated understanding and willingness to comply with all discharge instructions. IV DC'd, cannula intact. Pt escorted to front lobby via wheelchair by auxiliary staff.
[2021-01-11] MEDS ORDERED: amox tr/potassium clavulanate 875/125mg TAB PO SCH (17:30)
[2021-01-12 11:00] LABS: CARCINOEMBRYONIC ANTIGEN 2.6 ng/mL (0.0-4.7)
== END 2021-01-11 15:23 | disposition home or self-care (01) | DRG 853 ==
LOC: ER 18:23 → ED HOLD 22:12 → SUR 3N 01-05 22:59
PROVIDERS: ADMIT Internal Medicine; ATTEND Family Medicine
PROC: BW211ZZ Computerized Tomography (CT Scan) of Abdomen and Pelvis using Low Osmolar Contrast (ICD-10-PCS; 2021-01-04)
PROC: BW211ZZ Computerized Tomography (CT Scan) of Abdomen and Pelvis using Low Osmolar Contrast (ICD-10-PCS; 2021-01-05)
PROC: 0W9G4ZZ Drainage of Peritoneal Cavity, Percutaneous Endoscopic Approach (ICD-10-PCS; 2021-01-06)
PROC: 8E0W4CZ Robotic Assisted Procedure of Trunk Region, Percutaneous Endoscopic Approach (ICD-10-PCS; 2021-01-06)
PROC: 0DTJ4ZZ Resection of Appendix, Percutaneous Endoscopic Approach (ICD-10-PCS; principal; 2021-01-06 11:41)
DX: A41.9 Sepsis, unspecified organism (principal); K35.33 Acute appendicitis with perforation, localized peritonitis, and gangrene, with abscess; N17.0 Acute kidney failure with tubular necrosis; N12 Tubulo-interstitial nephritis, not specified as acute or chronic; E86.0 Dehydration; E87.6 Hypokalemia; Z20.822 Contact with and (suspected) exposure to COVID-19; F12.90 Cannabis use, unspecified, uncomplicated; K66.0 Peritoneal adhesions (postprocedural) (postinfection); T36.8X5A Adverse effect of other systemic antibiotics, initial encounter; Y92.230 Patient room in hospital as the place of occurrence of the external cause; K42.9 Umbilical hernia without obstruction or gangrene; M41.9 Scoliosis, unspecified; B19.20 Unspecified viral hepatitis C without hepatic coma; G89.29 Other chronic pain; Z87.442 Personal history of urinary calculi; Z88.5 Allergy status to narcotic agent; Z90.49 Acquired absence of other specified parts of digestive tract; Z71.51 Drug abuse counseling and surveillance of drug abuser
CPT/HCPCS: 36415; 71045; 74018; 74176; 74177; 80048; 80053; 80202; 81001; 82150; 82378; 83605; 83690; 83735; 84100; 85025; 85610; 86301; 87040; 87081; 87635; 88304; 93005; 96374; 99285; A4215; A4618; G0378; J0696; J1644; J1650; J2001; J2250; J2270; J2405; J2543; J2704; J2710; J3010; J3370; J3490; J7030; J7120; Q9963; Q9967

== ENCOUNTER 2021-12-05 10:47 | Day surgery (SDC) | payer MEDICARE, MEDICAID ==
[~2021-12-05] VITALS: Ht 165.1 cm; Wt 60.8 kg
[2021-12-05] VITALS (8 sets, daily range): BP systolic 124–147; BP diastolic 67–104
[~2021-12-05 10:47] MED LIST changes: +AMOX-580 PO; -CYCL-1 PO; -MEDICAL MARIJUANA
[2021-12-05] MEDS ORDERED: HYDR-3964 PO (11:25)
[2021-12-05] MEDS ORDERED: normal saline 1000ml 1,000 ML IV SCH (11:30)
[2021-12-05] MEDS ORDERED: LIDOcaine 1% W/epiNEPHrine 1:100,000 20ml vial ONE (12:53)
== END 2021-12-05 13:50 | disposition home or self-care (01) ==
LOC: SSTAY O 10:47
PROVIDERS: ATTEND Preventive Medicine Aerospace Medicine
DX: Z45.2 Encounter for adjustment and management of vascular access device (principal); Z85.89 Personal history of malignant neoplasm of other organs and systems
CPT/HCPCS: 36590; J3490; J7030

== ENCOUNTER 2024-01-19 12:38 | Emergency (ER) | payer MEDICARE, MEDICAID ==
[~2024-01-19] VITALS: Ht 165.1 cm; Wt 63.1 kg
[~2024-01-19 12:38] MED LIST changes: -AMOX-580 PO; +HYDR-3964 PO
[2024-01-19 13:52] LABS: BILIRUBIN,URINE NEGATIVE (Neg); CLARITY,URINE SLIGHTLY CLOUDY (Clear); COLOR,URINE YELLOW (Yellow); GLUCOSE, URINE NEGATIVE (Neg); KETONES,URINE NEGATIVE (Neg); LEUKOCYTE ESTERASE ,URINE NEGATIVE (Neg); NITRITES, URINE NEGATIVE (Neg); OCCULT BLOOD,URINE NEGATIVE (Neg); PROTEIN,URINE NEGATIVE (Neg); UROBILINOGEN,URINE 0.2 E.U/dL (0.2-1.0)
[2024-01-19 13:58] LABS: MUCUS STRANDS MODERATE /LPF (Neg); UA COLLECTION TYPE CLN CATCH MIDSTREAM
[2024-01-19 13:59] LABS: BACTERIA,URINE FEW /HPF (Neg); RBC,URINE 0-2 /HPF (0-2); SQUAMOUS EPITHELIAL CELL,UR MODERATE /LPF (FEW); WBC,URINE 0-4 /HPF (0-4)
[2024-01-19 14:05] LABS: BASOPHILS % (AUTO) 0.1 % (0-1); EOSINOPHILS % (AUTO) 0.2 % (0-6); HEMATOCRIT 39.5 % (42.0-52.0); HEMOGLOBIN 13.2 g/dl (14.0-17.9); LYMPHOCYTES # (AUTO) 2.1 X10'3 (1.1-4.8); LYMPHOCYTES % (AUTO) 22.1 % (21-51); MEAN CORPUSCULAR HEMOGLOBIN 31.6 PG (27.0-31.0); MEAN CORPUSCULAR HGB CONC 33.4 g/dL (33.0-36.5); MEAN CORPUSCULAR VOLUME 94.8 FL (78-98); MEAN PLATELET VOLUME 8.6 FL (7.4-10.4); MONOCYTES # (AUTO) 0.6 X10'3 (0-0.9); MONOCYTES % (AUTO) 6.9 % (2-12); NEUTROPHILS # (AUTO) 6.6 X10'3 (1.8-7.7); NEUTROPHILS % (AUTO) 70.7 % (42-75); PLATELET COUNT 231 X10'3 (140-440); RED BLOOD COUNT 4.17 X10'6 (4.70-6.10); RED CELL DISTRIBUTION WIDTH 12.9 % (11.5-14.5); WHITE BLOOD COUNT 9.4 X10'3 (4.5-11.0)
[2024-01-19 14:28] LABS: ALANINE AMINOTRANSFERASE 23 U/L (12-78); ALBUMIN 3.8 G/DL (3.4-5.0); ALBUMIN/GLOBULIN RATIO 1.1 (1.1-1.5); ALKALINE PHOSPHATASE 73 IU/L (46-116); ANION GAP 8 (8-16); ASPARTATE AMINO TRANSFERASE 21 U/L (10-37); BILIRUBIN,TOTAL 0.3 MG/DL (0.1-1.0); BLOOD UREA NITROGEN 7 MG/DL (7-18); BUN/CREATININE RATIO 11.1 (10.0-20.0); CALCIUM 8.7 MG/DL (8.5-10.1); CHLORIDE 107 MMOL/L (99-107); CREATININE 0.63 MG/DL (0.60-1.10); GLUCOSE 87 MG/DL (70-104); LIPASE 86 U/L (16-77); POTASSIUM 3.7 MMOL/L (3.5-5.1); SODIUM 142 MMOL/L (135-145); TOTAL CARBON DIOXIDE 27.5 MMOL/L (24-32); TOTAL PROTEIN 7.3 G/DL (6.4-8.2); eCRCL 108 ML/MIN; eGFR > 90 ML/MIN
[2024-01-19] MEDS: normal saline 1000ML IV soln IVB ONE (14:44)
[2024-01-19] MEDS: ketorolac trometh 15mg/ml vial 15 MG/ML ML IV ONE (14:45)
[2024-01-19] MEDS: sildenafil citrate 20mg tablet PO STA (14:54)
[2024-01-19] MEDS ORDERED: NAPR-56 PO (16:41)
[2024-01-19] MEDS: azithromycin 250mg tablet PO ONE (16:45)
[2024-01-19] MEDS: phenazopyridine 100mg tablet PO ONE (16:46)
[2024-01-19] MEDS: CefTRIAXone 1000mg IM Kit (w/lidocaine diluent) IM STA (16:46)
[2024-01-19 17:07] VITALS: BP 96/69; PULSE 57; RESP 16; TEMP 98.5; O2SAT 98
[2024-01-19 17:46] LABS: SYPHILIS SCREENING TEST POC NEGATIVE (Negative)
[2024-01-22 05:57] LABS: CHLAMYDIA TRACHOMATIS, NAA Negative (Negative)
== END 2024-01-19 17:09 | disposition home or self-care (01) ==
LOC: ER 12:38
DX: R10.31 Right lower quadrant pain (principal); F12.90 Cannabis use, unspecified, uncomplicated; Z91.041 Radiographic dye allergy status; Z88.5 Allergy status to narcotic agent; Z79.899 Other long term (current) drug therapy; Z90.49 Acquired absence of other specified parts of digestive tract
CPT/HCPCS: 36415; 74018; 74176; 80053; 81001; 83690; 85025; 86592; 87491; 87591; 96361; 96372; 96374; 99285; J0696; J1885; J7030

== ENCOUNTER 2024-09-03 10:11 | Outpatient (CLI) | payer MEDICARE, MEDICAID ==
--- NOTE | 2024-09-03 13:02 | RADIOLOGY REPORT ---
INDICATION: LOW BACK PAIN COMPARISON: None TECHNIQUE: 3 views of the lumbar spine were obtained. FINDINGS: The lumbar vertebral alignment is normal. Multilevel degenerative changes most severe L4-L5 through L5-S1 causing moderate neural foraminal and spinal canal stenosis No acute fracture, vertebral compression deformity or aggressive osseous lesions. The paravertebral soft tissues are grossly unremarkable. IMPRESSION: No acute fracture or subluxation.
== END 2024-09-03 23:59 | disposition home or self-care (01) ==
LOC: RAD 10:11
PROVIDERS: ATTEND Nurse Practitioner Occupational Health
DX: M47.817 Spondylosis without myelopathy or radiculopathy, lumbosacral region (principal); M54.50 Low back pain, unspecified; M48.07 Spinal stenosis, lumbosacral region
CPT/HCPCS: 72110

== ENCOUNTER 2024-10-05 08:26 | Outpatient (CLI) | payer MEDICARE, MEDICAID ==
--- NOTE | 2024-10-05 11:23 | RADIOLOGY REPORT ---
MRI LUMBAR SPINE CLINICAL HISTORY: LUMBAGO WITH SCIATICA, RIGHT SIDE TECHNIQUE: Multi planar, multi sequence MR images of the lumbar spine without intravenous contrast. Comparison: None FINDINGS: The conus terminates at an appropriate level and demonstrates normal caliber and signal. The vertebra l bodies demonstrate normal height and marrow signal. There is levoconvex scoliosis of the lumbar spi ne with the apex at the L2-L3 level. There is mildly exaggerated lumbar lordosis. There is disc desic cation throughout with multilevel disc space narrowing, worst at L4-L5 and L5-S1. At L1-L2 there is no significant disc herniation. There is no canal or significant foraminal stenosi s. At L2-L3 there is bilateral facet arthropathy and diffuse disc bulge. There is no canal stenosis. The re is bpuz-sx-bdcttrry right neural foraminal stenosis. At L3-L4 there is diffuse disc bulge and moderate bilateral facet arthropathy, cqhlf-hsdhqxk-cobv-lef t. There is no significant canal stenosis. There is moderate right and mild left neural foraminal latanay nosis. At L4-L5 there is bilateral facet arthropathy, nygko-lzhjqfl-amha-left. There is disc bulge without canal stenosis. There is mild right neural foraminal stenosis. At L5-S1 there is likely L5 spondylolysis with grade 1 anterolisthesis of L5 on S1. There is diffuse disc bulge and moderate bilateral facet arthropathy. There is no significant central canal stenosis. There is narrowing of the lateral recesses, nrag-ntueoln-ztlk-right. There is severe left neural fora irma stenosis with likely compression of the exiting left L5 nerve root. There is moderate right ne ural foraminal stenosis. IMPRESSION: 1. Levoconvex scoliosis of the lumbar spine with multilevel degenerative changes as described levels above. There is no significant spinal canal stenosis. 2. There is likely L5 spondylolysis with grade 1 anterolisthesis of L5 on S1. There is severe left ne ural foraminal stenosis at this level with likely compression of the exiting left L5 nerve root. HS:Y
== END 2024-10-05 23:59 | disposition home or self-care (01) ==
LOC: MRI02 08:26
PROVIDERS: ATTEND Nurse Practitioner Occupational Health
DX: M41.86 Other forms of scoliosis, lumbar region (principal); M43.17 Spondylolisthesis, lumbosacral region; M54.41 Lumbago with sciatica, right side; M48.07 Spinal stenosis, lumbosacral region
CPT/HCPCS: 72148

== ENCOUNTER 2025-01-16 11:04 | Emergency (ER) | payer MEDICARE, MEDICAID ==
[~2025-01-16] VITALS: Ht 157.5 cm; Wt 61.4 kg
--- NOTE | 2025-01-16 13:10 | Physician Documentation ---
History of Present Illness ~ Chief Complaint: Scrotal Pain Stated Complaint: KIDNEY STONE Time Seen by MD: 12:57 OK to notify your PCP?: Yes Primary Medical Doctor: Dr. Alegria Source: patient, RN/, RN notes reviewed, old records Mode of Arrival: Ambulatory Exam Limitations: no limitations [facility] BED 09 This patient is a 59 y/o male who presents to ED with chief complaint of right sided scrotal pain. Patient states that this pain started a few days ago and became significantly worse this morning. Patient reports that this pain starts in his right groin and radiates up to his right abdomen. He states that the pain is similar to pain he had with history of kidney stones. He describes this pain as a constant pressure type pain. He states that this pain is positional; somewhat better when standing, but certain movements worsen his pain. He denies any new back pain per history of sculliosis, stating his pain is more in his groin. In addition to pain he has also had hot/cold chills and sweats throughout the night last night. He was asked, but denies any heavy lifing prior to his onset of pain a few days ago. Patient denies any other associated symptoms at this time. Patient denies any other alleviating or exacerbating factors. Medication Reconciliation Allergies: Coded Allergies: No Known Drug Allergies (Verified Allergy, Unknown, 01/19/24) erythromycin base (Verified Adverse Reaction, Mild, NAUSEA, 01/19/24) hydrocodone (Verified Adverse Reaction, Unknown, VOMITING, 01/19/24) Scheduled PRN Hydrocodone Bit/Acetaminophen (Hydrocodon-Acetaminophen 5-325), 1 TAB PO BID PRN for pain, (Reported) Past Medical History Past Medical History: Hepatitis C, Kidney Stones, UTI, Chronic Pain, *PSYCH* Past Surgical History: cholecystectomy Patient History: FH: heart attack MOTHER Smoking Status: Never smoker Alcohol Use: Sober Drug Use: marijuana Lives with: Family Lives In: Home Review of Systems All Other Systems at this time: Reviewed and Negative ROS As stated in the HPI above, otherwise all other systems have been reviewed and negative. Physical Exam Vital Signs: RN Vital Signs have been reviewed: Yes, Temperature: 97.8, Source: Temporal, Heart Rate: 63, Respiratory Rate: 16, BP: 136/77, Pulse Oximetry: 99, Weight: 61.400 Physical Exam General: The patient is well developed, well nourished, nontoxic appearing and is in no acute distress. Skin: [place], warm and dry with no rashes. HEENT: Head was normocephalic and atraumatic. Eyes - pupils equal, round, reactive to light and accommodation. Extraocular movements were intact. Conjunctivae were nonicteric. The mouth and oropharynx were clear with moist mucous membranes. There were no pharyngeal exudates or erythema. Neck: Supple and nontender. There was no jugular venous distention, lymphadenopathy, thyromegaly or masses. Chest: Clear to auscultation bilaterally without wheezes, rales or rhonchi. No accessory muscle use. No dullness to percussion. Heart: Rate regular and rhythmic. S1, S2. No murmurs. Palpation of the chest wall was normal. No rubs or thrills. Abdomen: Tender to palpation over right inguinal area, but no appreciable hernia or palpable masses. Abdomen otherwise soft and nondistended. Positive bowel sounds. No guarding or rebound. No hepatosplenomegaly. : Normal appearing external genitalia. Normal sized testicles. Extremities: No cyanosis, clubbing or edema. The patient moves all extremities. Pulses were equal and symmetric. Neurologic: Motor and sensation grossly intact. A & O x4. Psychologic: The patient was oriented to person, place and time. Progress Results/Orders Reviewed/noted all lab results: Yes Results/Orders Orders - BARI DIXON MD Ct Abdomen Pelvis (01/16/25 13:17) Cult Urine + [place] Ct (01/16/25 13:31) Completed Orders - BARI DIXON MD Ct Abdomen Pelvis (01/16/25 13:17) Ua W/Microscopic, Cult If Ind (01/16/25 13:12) Hydrocodone/Apap 10/325 ([place] 10/325mg (01/16/25 14:20) Hydrocodone/Apap 10/325 ([place] 10/325mg (01/16/25 15:15) Medications Received in ER Medications (Trade) Dose Ordered Sig/Iona Route PRN Reason Start Time Stop Time Status Last Admin Dose Admin ([place] 10/325mg tab) 1 tab ONCE ONCE PO 01/16/25 14:20 01/16/25 14:21 DC 01/16/25 14:41 1 TAB ([place] 10/325mg tab) 1 tab ONCE ONCE PO 01/16/25 15:15 01/16/25 15:29 DC 01/16/25 15:39 1 TAB Vital Signs 01/16/25 01/16/25 01/16/25 01/16/25 11:11 13:07 13:09 14:00 Temp 97.8 Pulse 63 55 58 Resp 16 16 16 B/P (MAP) 136/77 155/88 (110) 131/85 (100) Pulse Ox 99 98 98 O2 Flow Rate 0 0 01/16/25 01/16/25 15:00 15:43 Temp 97.8 Pulse 57 71 Resp 16 18 B/P (MAP) 142/91 (108) 142/91 Pulse Ox 98 99 O2 Flow Rate 0 Laboratory Tests Test 01/16/25 13:12 Urine Specimen Description Non-specified Urine Color Yellow Urine Clarity Slightly cloudy Urine pH 6.0 Urine Specific Kirvin 1.020 Urine Protein Negative Urine Glucose (UA) Negative Urine Ketones Negative Urine Occult Blood Trace-intact Urine Nitrite Negative Urine Bilirubin Negative Urine Urobilinogen 0.2 Urine Leukocyte Esterase Trace H Urine RBC 3-10 Urine WBC 5-10 H Urine WBC Clumps Few Urine Squamous Epithelial Cells Few Urine Bacteria Few Urine Mucus Many Urine Culture Indicated Indicated Volume Urine Centrifuged 10 ml Urine Comment Microbiology Date/Time Source Procedure Growth Status 01/16/25 13:31 Urine Nonspecified Urine Culture - Preliminary Culture received. Resulted Re-Evaluation Re-Evaluation : Re-Evaluation: Improved Progress Patient was seen and examined. Patient is given reassurance. Patient has a hydrocele and on exam I did not appreciate any abdominal hernia but it was a bit painful on exam. Possibility of a direct inguinal partial tear may be causing some pain he was lifting some heavy objects a few days ago when the pain started. Patient also did run out of his [place] and was given two doses in his feeling a bit better. Otherwise his workup was reassuring he was given rest instructions and discharged home. He should follow up with his primary care physician as needed or return if a large hernia that is not reducible develops. EKG/XRAY/CT/US/VASC/MRI CT : Interpreted By: radiologist CT: abdomen/pelvis With Contrast?: No Impression [place] [id number] [address] [facility] [address] CAT SCAN Patient: MUKESH GERBER JR Medical Record: [id number] [place] : 1965, Age: 59 Sex: Male Location: ER Patient Status: [facility] ER Service Date/Time: 01/16/251316 Ordering Physician: BARI DIXON MD Exam: CT ABDOMEN PELVIS Exam: CT CT ABDOMEN PELVIS History: ABD PAIN Comparison Study: CT CT ABDOMEN PELVIS on DOS: 01/19/24 TECHNIQUE: Multidetector CT of the abdomen and pelvis was performed from lung bases to pubic symphysis. Imaging was performed without IV contrast. Axial, coronal, and sagittal multiplanar reformats were obtained from the axial data set by the technologist. RADIATION DOSE: DLP 514.62 mGy.cm; CTDI vol 10.64 mGy. Findings: Lungs: The lung bases are clear. Heart: No cardiomegaly or pericardial effusion. Liver: Unremarkable. Gallbladder: Cholecystectomy. Spleen: Unremarkable Pancreas: Unremarkable Adrenals: Unremarkable Kidneys: Bilateral nonobstructive nephrolithiasis. Left renal cyst GI tract: Diverticulosis without evidence of acute diverticulitis. : The urinary bladder is decompressed with diffuse wall thickening. Vasculature: Mild aortoiliac atherosclerosis. Lymphadenopathy: Absent Peritoneum: No ascites Musculoskeletal: Mild multilevel degenerative changes of the thoracolumbar spine. Soft tissues: Unremarkable Impression: 1. No acute abdominopelvic abnormalities. 2. Diverticulosis without evidence of acute diverticulitis. 3. Bilateral nonobstructive nephrolithiasis 4. Decompressed urinary bladder with diffuse wall thickening, nonspecific. Correlate for cystitis. Electronically Signed by:DANNI FRANKS DO Date & Time: 01/16/25 1404 Dictated by: DANNI FRANKS DO Dictation date and time: 01/16/25 1320 Primary Care Provider: NO PRIMARY CARE PROVIDER cc: BARI DIXON MD ~ EDMD Dr. Dixon reviewed imaging and agrees with above findings. Ultrasound : Interpreted By: both Ultrasound of: testicular Impression Preliminary read by US tech at 1311 shows: Right inguinal hernia seen, tissue appears reducible and without vascularity. Possible fat tissue as no tubular structures seen. Neck measured at 3.1mm. [address] [facility], [facility] [address] ULTRASOUND Patient: MUKESH GERBER JR Medical Record: [id number] [place] : 1965, Age: 59 Sex: Male Location: ER Patient Status: [facility] ER Service Date/Time: 01/16/251156 Ordering Physician: WENDY ZHANG NP Exam: US TESTIC/W/DUPLEX Procedure: US US TESTIC/W/DUPLEX [place] Study Date and Requested Time: 01/16/2025 12:28 PM History: scrotal pain Comparison: CT abdomen and pelvis 01/16/2025 Technique: Multiple high-resolution grayscale images of scrotal contents obtained. Color and spectral Doppler used for evaluation of testicular blood flow. Findings: Right testicle measures 4 x 2 x 2.8 cm with homogenous echotexture and normal contours. Right epididymal head measures 1 x 1.1 cm with a 0.5 cm and 0.4 cm cysts. Left testicle measures 3.9 x 2 x 3.2 cm with homogenous echotexture and normal contours. Left epididymal head measures 1 x 1.2 cm with a 0.6 cm complex cyst Normal testicular color and spectral Doppler flow bilaterally. No evidence of testicular torsion or mass. Trace right-sided hydrocele. Over the right inguinal region area of pain there appears to be a tiny fat containing inguinal hernia when correlated with same day CT abdomen and pelvis Impression: Trace right-sided hydrocele. Otherwise, No sonographic evidence of testicular abnormality. Small bilateral epididymal cysts. Electronically Signed by:CHRISTINE MILES DO Date & Time: 01/16/251449 Dictated by: CHRISTINE MILES DO Dictation date and time: 01/16/251449 Primary Care Provider: NO PRIMARY CARE PROVIDER cc: WENDY ZHANG [employer] ~ EDMD Dr. Dixon reviewed imaging and agrees with above findings. Medical Decision Making Additional info obtained from: old records Genital Diff Dx:Considerations: Include: Balanoposthitis, Cellulitis, Epididymitis, Hydrocele, Inguinal hernia, Paraphimosis, Prostatitis, Testicular torsion, Torsion-epididymis, Torsion-appendiceal, Urinary retention, Urethritis, UTI, Other Departure Time of Disposition: 15:15 Disposition: 01 HOME / SELF CARE / HOMELESS Impression: Primary Impression: Right hydrocele Additional Impression: Right inguinal pain Condition: Stable Discharge Instructions: Hydrocele, Adult Additional Instructions: Don't lift any heavy objects for 1-2 weeks. Follow up with your primary care doctor. Referrals: NO PRIMARY CARE PROVIDER (PCP) Education Educated: Patient Educated regarding: diagnosis, treatment, need for follow up Signature Scribe Signature: Scribed for Bari Dixon MD by Yvonne Durán. 01/16/25 13:26 Attestation: The note accurately reflects work and decisions made by me.Bari Dixon MD 01/16/25 13:10 BARI DIXON MD Jan 16, 2025 13:10
[2025-01-16 13:24] LABS: LEUKOCYTE ESTERASE ,URINE TRACE (Neg); NITRITES, URINE NEGATIVE (Neg); OCCULT BLOOD,URINE TRACE-INTACT (Neg)
[2025-01-16 13:27] LABS: UA COLLECTION TYPE NON-SPECIFIED
[2025-01-16 13:31] LABS: MUCUS STRANDS MANY /LPF (Neg); SQUAMOUS EPITHELIAL CELL,UR FEW /LPF (FEW); WBC CLUMPS,URINE FEW /HPF (NEGATIVE)
--- NOTE | 2025-01-16 14:06 | RADIOLOGY REPORT ---
Exam: CT CT ABDOMEN PELVIS History: ABD PAIN Comparison Study: CT CT ABDOMEN PELVIS on DOS: 01/19/24 TECHNIQUE: Multidetector CT of the abdomen and pelvis was performed from lung bases to pubic symphysi s. Imaging was performed without IV contrast. Axial, coronal, and sagittal multiplanar reformats were obtained from the axial data set by the technologist. RADIATION DOSE: DLP 514.62 mGy.cm; CTDI vol 10.64 mGy. Findings: Lungs: The lung bases are clear. Heart: No cardiomegaly or pericardial effusion. Liver: Unremarkable. Gallbladder: Cholecystectomy. Spleen: Unremarkable Pancreas: Unremarkable Adrenals: Unremarkable Kidneys: Bilateral nonobstructive nephrolithiasis. Left renal cyst GI tract: Diverticulosis without evidence of acute diverticulitis. : The urinary bladder is decompressed with diffuse wall thickening. Vasculature: Mild aortoiliac atherosclerosis. Lymphadenopathy: Absent Peritoneum: No ascites Musculoskeletal: Mild multilevel degenerative changes of the thoracolumbar spine. Soft tissues: Unremarkable Impression: 1. No acute abdominopelvic abnormalities. 2. Diverticulosis without evidence of acute diverticulitis. 3. Bilateral nonobstructive nephrolithiasis 4. Decompressed urinary bladder with diffuse wall thickening, nonspecific. Correlate for cystitis.
[2025-01-16] MEDS: HYDROcodone/acetaminophen 10/325mg tab PO ONE ×2 (14:41→15:39)
--- NOTE | 2025-01-16 14:52 | RADIOLOGY REPORT ---
Procedure: US US TESTIC/W/DUPLEX [facility] Study Date and Requested Time: 01/16/2025 12:28 PM History: scrotal pain Comparison: CT abdomen and pelvis 01/16/2025 Technique: Multiple high-resolution grayscale images of scrotal contents obtained. Color and spectral Doppler used for evaluation of testicular blood flow. Findings: Right testicle measures 4 x 2 x 2.8 cm with homogenous echotexture and normal contours. Right epididy mal head measures 1 x 1.1 cm with a 0.5 cm and 0.4 cm cysts. Left testicle measures 3.9 x 2 x 3.2 cm with homogenous echotexture and normal contours. Left epididy mal head measures 1 x 1.2 cm with a 0.6 cm complex cyst Normal testicular color and spectral Doppler flow bilaterally. No evidence of testicular torsion or m ass. Trace right-sided hydrocele. Over the right inguinal region area of pain there appears to be a tiny fat containing inguinal hernia when correlated with same day CT abdomen and pelvis Impression: Trace right-sided hydrocele. Otherwise, No sonographic evidence of testicular abnormality. Small bilateral epididymal cysts.
[2025-01-16 15:43] VITALS: BP 142/91; PULSE 71; RESP 18; TEMP 97.8; O2SAT 99
[2025-01-17] MEDS ORDERED: TAMS-55 PO (13:02)
[2025-01-17] MEDS ORDERED: NAPR-56 PO (13:03)
== END 2025-01-16 15:40 | disposition home or self-care (01) ==
LOC: ER 11:05
DX: N43.3 Hydrocele, unspecified (principal); F12.90 Cannabis use, unspecified, uncomplicated
CPT/HCPCS: 74176; 76870; 81001; 87088; 93976; 99285

== ENCOUNTER 2025-01-17 08:10 | Emergency (ER) | payer MEDICARE, MEDICAID ==
[~2025-01-17] VITALS: Ht 167.6 cm; Wt 61.4 kg
[2025-01-17 08:50] LABS: LEUKOCYTE ESTERASE ,URINE NEGATIVE (Neg); NITRITES, URINE NEGATIVE (Neg); OCCULT BLOOD,URINE NEGATIVE (Neg)
[2025-01-17 08:57] LABS: UA COLLECTION TYPE CLN CATCH MIDSTREAM
[2025-01-17] MEDS: ketorolac trometh 30MG/ML vial 30 MG/ML VIAL IM ONE (11:26)
[2025-01-17] MEDS: normal saline 1000ML IV soln IVB ONE (11:28)
[2025-01-17 11:30] VITALS: TEMP 98.2
--- NOTE | 2025-01-17 12:44 | Physician Documentation ---
History of Present Illness Chief Complaint: Flank Pain Stated Complaint: R FLANK PAIN Time Seen by MD: 10:55 Primary Medical Doctor: Dr. Alegria Mode of Arrival: EMS HPI 59-year-old male was seen yesterday and fully evaluated for both testicular pain and flank pain. CT results indicated nonobstructing renal calculus his testicular ultrasound indicated hydroceles. Medication Reconciliation Allergies: Coded Allergies: No Known Drug Allergies (Verified Allergy, Unknown, 01/19/24) erythromycin base (Verified Adverse Reaction, Mild, NAUSEA, 01/17/25) hydrocodone (Verified Adverse Reaction, Unknown, VOMITING, 01/17/25) Scheduled Naproxen (Naproxen), 1 TAB PO Q12H Tamsulosin Hcl* (Flomax*), 1 CAP PO DAILY Scheduled PRN Hydrocodone Bit/Acetaminophen (Hydrocodon-Acetaminophen 5-325), 1 TAB PO BID PRN for pain, (Reported) Past Medical History Past Medical History: Hepatitis C, Kidney Stones, UTI, Chronic Pain, *PSYCH* Past Surgical History: cholecystectomy Patient History: FH: heart attack MOTHER Alcohol Use: Sober Drug Use: marijuana Lives with: Family Lives In: Home Review of Systems All Other Systems at this time: Reviewed and Negative ROS As stated above in the HPI, otherwise all systems are reviewed and negative. Physical Exam Vital Signs: Temperature: 98.2, Source: Oral, Heart Rate: 56, Respiratory Rate: 19, BP: 152/70, Pulse Oximetry: 98, Weight: 61.360 Oxygen Flow Rate: 0 Physical Exam General: Alert, no apparent distress. Respiratory: Lungs clear, no respiratory distress. Chest: No accessory muscle use. Cardiovascular: Regular rate and rhythm, no murmurs. Gastrointestinal: Soft, nontender, nondistended. Bowels sounds present. negatvie CVA Neurologic: Oriented x4. Psychiatric: Normal mood and affect. Skin: Normal color, warm and dry. No edema, no ecchymosis. Progress Results/Orders Results/Orders Orders - ALIREZA ZHANG NP Tamsulosin Capsule (Flomax Capsule) (01/17/25 21:00) Completed Orders - ALIREZA ZHANG BOOT REPAIRER Ketorolac Trometh 30mg/Ml Vial (Toradol (01/17/25 11:15) Normal Saline 1000ml (0.9% Sodium Chlori (01/17/25 11:15) Medications Received in ER Medications (Trade) Dose Ordered Sig/Iona Route PRN Reason Start Time Stop Time Status Last Admin Dose Admin (Flomax capsule) 0.4 mg ONCE ONCE PO 01/17/25 21:00 01/17/25 21:01 01/17/25 11:28 0.4 MG (0.9% sodium chloride (NS) 1000ml IV soln) 1,000 ml ONCE ONCE IVB 01/17/25 11:15 01/17/25 11:16 DC 01/17/25 11:28 1,000 ML Vital Signs 01/17/25 01/17/25 01/17/25 01/17/25 08:12 08:21 08:21 09:06 Temp 98.2 Pulse 61 51 56 Resp 18 16 18 B/P (MAP) 126/72 153/66 (95) 139/77 (97) Pulse Ox 99 98 97 O2 Flow Rate 0 0 0 01/17/25 01/17/25 01/17/25 01/17/25 10:07 10:57 11:30 12:21 Temp 98.2 Pulse 55 56 65 56 Resp 16 16 18 19 B/P (MAP) 129/76 (93) 136/72 (93) 152/70 (97) Pulse Ox 97 98 98 98 O2 Flow Rate 0 0 0 0 Laboratory Tests Test 01/17/25 08:16 Urine Specimen Description Cln catch midstream Urine Color Yellow Urine Clarity Clear Urine pH 6.0 Urine Specific Amity 1.025 Urine Protein Negative Urine Glucose (UA) Negative Urine Ketones Negative Urine Occult Blood Negative Urine Nitrite Negative Urine Bilirubin Negative Urine Urobilinogen 0.2 Urine Leukocyte Esterase Negative Urine Culture Indicated Not ind Volume Urine Centrifuged 10 ml Urine Comment Medical Decision Making Findings Yesteerdays CT reseults 1. No acute abdominopelvic abnormalities. 2. Diverticulosis without evidence of acute diverticulitis. 3. Bilateral nonobstructive nephrolithiasis 4. Decompressed urinary bladder with diffuse wall thickening, nonspecific. Correlate for cystitis. todoays urinalysis was negative for RBCs or any signs of WBCs I am going to discharge the patient on Flomax to help with the passing of kidney stones I suspect his primary complaint is secondary to renal colic. Differential Dx:Considerations: Include: AAA, Angina/OR, Aortic dissection, Appendicitis, Bowel obstruction, Cholangitis, Cholelithasis, Constipation, Diverticular disease, Esophageal rupture, Esophagitis, Gastritis/PUD, Gastroenteritis, GI hemorrhage, Hernia, Hepatitis, Inflammatory BD, Ischemic bowel, Pancreatitis, Porphyria, Testicular torsion, Trauma, intraabdominal, Urinary obstruction, Urinary tract infection, Urolithiasis, Other Departure Disposition: HOME / SELF CARE / HOMELESS Impression: Primary Impression: Renal colic Additional Impression: Calculus of kidney Condition: Stable Discharge Instructions: Kidney Stones Referrals: NO PRIMARY CARE PROVIDER (PCP) Prescriptions Naproxen (Naproxen) 500 Mg Tablet 1 TAB PO Q12H, #20 TAB Prov: ALIREZA ZHANG NP 01/17/25 Tamsulosin Hcl* (Flomax*) 0.4 Mg Cap.sr.24h 1 CAP PO DAILY for 30 Days, #30 CAP Prov: ALIREZA ZHANG NP 01/17/25 Education Educated: Patient Educated regarding: diagnosis Signature Scribe Signature: t Attestation: Scribed for Alireza Zhang Heating Systems Installer by Alireza Light NP . 01/17/25 13:01 ALIREZA ZHANG NP Jan 17, 2025 12:44
[2025-01-17] MEDS ORDERED: TAMS-55 PO (13:02)
[2025-01-17] MEDS ORDERED: NAPR-56 PO (13:03)
[2025-01-17 13:10] VITALS: BP 141/81; PULSE 70; RESP 19; O2SAT 98
== END 2025-01-17 13:23 | disposition home or self-care (01) ==
LOC: ER 08:11
DX: N20.0 Calculus of kidney (principal); F12.90 Cannabis use, unspecified, uncomplicated; F10.90 Alcohol use, unspecified, uncomplicated; Z90.49 Acquired absence of other specified parts of digestive tract; Y90.9 Presence of alcohol in blood, level not specified
CPT/HCPCS: 81003; 96360; 99285; J7030

== ENCOUNTER 2025-04-06 10:10 | Outpatient (CLI) | payer MEDICARE, MEDICAID ==
--- NOTE | 2025-04-06 11:35 | RADIOLOGY REPORT ---
Exam: CT CT LUMBAR SPINE DATE OF SERVICE: 04/06/2025 10:21 AM HISTORY: LUMBAGO WITH SCIATICA, RIGHT SIDE COMPARISON: MR MRI LUMBAR SPINE on DOS: 10/05/24 TECHNIQUE: Multiple axial CT images of the lumbosacral spine were obtained. Radiation Dose Information: CT Dose: CTDI volume is 13 mGy. Dose-length product is 445 mGy*cm Findings: Vertebral body height is maintained. Levoscoliosis. Multilevel degenerative changes of the lumbar spine, including moderate right and severe left foraminal stenosis L5-S1. Moderate foraminal stenosis at L3-4. No significant spinal canal narrowing. Diffuse bladder wall thickening. Small nonobstructing intrarenal calculi. IMPRESSION: No acute fracture. Multilevel degenerate changes with moderate to severe foraminal stenosis as described. No significant spinal canal narrowing.
== END 2025-04-06 23:59 | disposition home or self-care (01) ==
LOC: RAD 10:10
PROVIDERS: ATTEND Nurse Practitioner Occupational Health
DX: M47.816 Spondylosis without myelopathy or radiculopathy, lumbar region (principal); M54.41 Lumbago with sciatica, right side; M48.07 Spinal stenosis, lumbosacral region
CPT/HCPCS: 72131